=== PATIENT | female | born 1975 | race Caucasian/White ===

== ENCOUNTER 2018-03-05 08:56 | Outpatient (CLI) | payer OTHER ==
--- NOTE | 2018-03-05 15:53 | MMO ---
BILATERAL SCREENING MAMMOGRAMS 03/05/18 HISTORY: 43-year-old female patient presenting for screening mammography. Mother with history of breast cancer. This study is interpreted with the assistance of computer aided detection. COMPARISON: 11/29/14. There is an extremely dense parenchymal pattern which may obscure a lesion. On the CC projection, the re is suggestion of an area of architectural distortion in the outer left breast which is most likely attributable to superimposition of breast parenchyma and no corresponding abnormality is seen on the MLO view. However, further imaging is warranted with 3D imaging to further evaluate this area of crystal arent architectural distortion. No dominant mass or suspicious grouping of microcalcifications are se en in either breast. Benign appearing calcification is seen in the right breast. IMPRESSION: BIRADS 0: Incomplete: Need Additional Imaging Evaluation and/or Prior Mammograms for Comparison. Spot compression CC view left breast with 90 degree mediolateral view and 3D imaging is recommended f or further evaluation. Ultrasound can be scheduled if needed. POS: DILIP
== END 2018-03-05 08:57 | disposition home or self-care (01) ==
LOC: SCSMAMMO 08:56
PROVIDERS: ATTEND Family Medicine
DX: Z12.31 Encounter for screening mammogram for malignant neoplasm of breast (principal); Z80.3 Family history of malignant neoplasm of breast
CPT/HCPCS: 77067

== ENCOUNTER 2018-04-04 14:01 | Outpatient (CLI) | payer OTHER ==
--- NOTE | 2018-04-04 16:45 | ULT ---
ULTRASOUND LEFT BREAST: Date: 04/04/18 HISTORY: Abnormal mammogram. COMPARISON: Mammogram from same date and mammogram dated 03/05/18. FINDINGS: Corresponding to the mammographic findings is a simple cyst in the left breast 3 o'clock, which is wi thin a mound of dense breast tissue. IMPRESSION: BIRADS Category 2: Benign findings. Continued screening recommended. POS: OFF
== END 2018-04-04 14:02 | disposition home or self-care (01) ==
LOC: BICMAMMO 14:01
PROVIDERS: ATTEND Family Medicine
DX: R92.2 Inconclusive mammogram (principal); Z80.3 Family history of malignant neoplasm of breast
CPT/HCPCS: G0279